=== PATIENT | male | born 1970 | race Caucasian/White ===

== ENCOUNTER → 2016-08-07 | Outpatient (CLI) | payer BC, MEDICARE ==
[2016-08-07 13:01] LABS: RED BLOOD COUNT 4.79 M/UL (4.20-5.50); WHITE BLOOD COUNT 5.8 K/UL (4.5-11.0)
== END ==
LOC: LAB 11:56
PROVIDERS: Internal Medicine Nephrology
DX: Z94.0 Kidney transplant status (principal); N18.9 Chronic kidney disease, unspecified; Z79.899 Other long term (current) drug therapy
CPT/HCPCS: 36415; 80069; 83735; 85027

== ENCOUNTER → 2020-08-07 | Outpatient (CLI) | payer BC, MEDICARE ==
[~2020-08-07] MED LIST: BACTROBAN OINT22 GM EXT
[2020-08-07 13:04] LABS: HEMOGLOBIN 12.8 gm/dl (14.0-17.5); RED BLOOD COUNT 4.55 M/UL (4.20-5.50); WHITE BLOOD COUNT 5.6 K/UL (4.5-11.0)
== END ==
LOC: LAB 12:28
PROVIDERS: Internal Medicine Nephrology
DX: N18.9 Chronic kidney disease, unspecified (principal); Z79.899 Other long term (current) drug therapy; Z94.0 Kidney transplant status
CPT/HCPCS: 36415; 80061; 80069; 83735; 85025

== ENCOUNTER → 2020-11-03 | Outpatient (CLI) | payer BC, MEDICARE ==
[2020-11-03 10:40] LABS: HEMOGLOBIN 13.7 gm/dl (14.0-17.5); RED BLOOD COUNT 4.73 M/UL (4.20-5.50); WHITE BLOOD COUNT 6.1 K/UL (4.5-11.0)
== END ==
LOC: LAB 09:55
PROVIDERS: Internal Medicine Nephrology
DX: Z48.22 Encounter for aftercare following kidney transplant (principal); Z51.81 Encounter for therapeutic drug level monitoring; N18.9 Chronic kidney disease, unspecified; Z79.899 Other long term (current) drug therapy
CPT/HCPCS: 36415; 80069; 83735; 85025; 87086

== ENCOUNTER 2021-01-18 16:36 | Emergency (ER) | payer BC, MEDICARE ==
[~2021-01-18] VITALS: Ht 182.9 cm; Wt 111.1 kg
[2021-01-18] MEDS ORDERED: DELSYM30 MG/5 ML PO (19:02)
[2021-01-18] MEDS ORDERED: ZOFRAN4 MG PO (19:02)
== END 2021-01-18 20:11 | disposition home or self-care (01) ==
LOC: ER1 16:36
DX: Z23 Encounter for immunization (principal); Z86.73 Personal history of transient ischemic attack (TIA), and cerebral infarction without residual deficits; Z94.0 Kidney transplant status; U07.1 COVID-19
CPT/HCPCS: 99283; M0243

== ENCOUNTER → 2021-06-22 | Outpatient (CLI) | payer BC, MEDICARE ==
[~2021-06-22] MED LIST changes: +DELSYM30 MG/5 ML PO; +ZOFRAN4 MG PO
[2021-06-22 12:57] LABS: HEMOGLOBIN 14.4 gm/dl (14.0-17.5); RED BLOOD COUNT 5.15 M/UL (4.20-5.50); WHITE BLOOD COUNT 6.5 K/UL (4.5-11.0)
== END ==
LOC: LAB 12:17
PROVIDERS: Internal Medicine
DX: Z48.22 Encounter for aftercare following kidney transplant (principal); Z79.899 Other long term (current) drug therapy
CPT/HCPCS: 36415; 80069; 83735; 85025; 87086

== ENCOUNTER → 2021-08-01 | Outpatient (CLI) | payer BC, MEDICARE ==
[2021-08-01 11:37] LABS: HEMOGLOBIN 12.8 gm/dl (14.0-17.5); RED BLOOD COUNT 4.74 M/UL (4.20-5.50); WHITE BLOOD COUNT 6.4 K/UL (4.5-11.0)
== END ==
LOC: LAB 10:20
PROVIDERS: Internal Medicine
DX: Z48.22 Encounter for aftercare following kidney transplant (principal); Z94.0 Kidney transplant status; Z79.899 Other long term (current) drug therapy
CPT/HCPCS: 36415; 80069; 83735; 85025; 87086

== ENCOUNTER → 2021-10-04 | Outpatient (CLI) | payer OTHER, BC, MEDICARE | LOC: RAD 11:04 | DX: M25.511 Pain in right shoulder (principal); M54.50 Low back pain, unspecified; M54.9 Dorsalgia, unspecified; G89.29 Other chronic pain; M19.011 Primary osteoarthritis, right shoulder; M51.36 Other intervertebral disc degeneration, lumbar region; M51.37 Other intervertebral disc degeneration, lumbosacral region; M25.78 Osteophyte, vertebrae; M47.816 Spondylosis without myelopathy or radiculopathy, lumbar region; M81.0 Age-related osteoporosis without current pathological fracture; M48.54XA Collapsed vertebra, not elsewhere classified, thoracic region, initial encounter for fracture; M43.9 Deforming dorsopathy, unspecified; M51.34 Other intervertebral disc degeneration, thoracic region | CPT/HCPCS: 72040; 72070; 72100; 73030 ==

== ENCOUNTER → 2021-11-06 | Outpatient (CLI) | payer BC, MEDICARE ==
[2021-11-06 12:34] LABS: HEMOGLOBIN 12.3 gm/dl (14.0-17.5); RED BLOOD COUNT 4.42 M/UL (4.20-5.50); WHITE BLOOD COUNT 4.8 K/UL (4.5-11.0)
== END ==
LOC: LAB 11:39
PROVIDERS: Internal Medicine; Internal Medicine Nephrology
DX: Z48.22 Encounter for aftercare following kidney transplant (principal); N25.81 Secondary hyperparathyroidism of renal origin; Z94.0 Kidney transplant status; Z79.899 Other long term (current) drug therapy
CPT/HCPCS: 36415; 80053; 82043; 82570; 83735; 83970; 84100; 84156; 85025; 87086

== ENCOUNTER → 2021-12-03 | Outpatient (CLI) | payer BC, MEDICARE ==
[2021-12-03 12:54] LABS: HEMOGLOBIN 8.3 gm/dl (14.0-17.5); RED BLOOD COUNT 2.79 M/UL (4.20-5.50); WHITE BLOOD COUNT 5.9 K/UL (4.5-11.0)
== END | disposition home or self-care (01) ==
LOC: OPSV 12:08
PROVIDERS: Family Medicine
DX: K51.90 Ulcerative colitis, unspecified, without complications (principal)
CPT/HCPCS: 80053; 85025; 86140

== ENCOUNTER → 2021-12-10 | Outpatient (CLI) | payer BC, MEDICARE | LOC: OPSV 10:41 | PROVIDERS: Family Medicine | DX: Z11.9 Encounter for screening for infectious and parasitic diseases, unspecified (principal) | CPT/HCPCS: 80053; 86140 ==

== ENCOUNTER → 2021-12-11 | Outpatient (CLI) | payer BC, MEDICARE ==
[2021-12-11 10:59] LABS: HEMOGLOBIN 9.2 gm/dl (14.0-17.5); RED BLOOD COUNT 3.12 M/UL (4.20-5.50); WHITE BLOOD COUNT 5.4 K/UL (4.5-11.0)
== END ==
LOC: OPSV 10:14
PROVIDERS: Family Medicine
DX: Z48.00 Encounter for change or removal of nonsurgical wound dressing (principal); Z11.9 Encounter for screening for infectious and parasitic diseases, unspecified
CPT/HCPCS: 36591; 85025

== ENCOUNTER → 2021-12-18 | Outpatient (CLI) | payer BC, MEDICARE ==
[2021-12-18 13:03] LABS: HEMOGLOBIN 7.6 gm/dl (14.0-17.5); RED BLOOD COUNT 2.55 M/UL (4.20-5.50); WHITE BLOOD COUNT 6.7 K/UL (4.5-11.0)
== END ==
LOC: OPSV 12-17 11:00
PROVIDERS: Family Medicine
DX: Z48.00 Encounter for change or removal of nonsurgical wound dressing (principal); Z11.9 Encounter for screening for infectious and parasitic diseases, unspecified
CPT/HCPCS: 80053; 85025; 86140

== ENCOUNTER → 2021-12-19 | Outpatient (CLI) | payer BC, MEDICARE ==
[2021-12-19 16:30] LABS: HEMOGLOBIN 7.8 gm/dl (14.0-17.5)
== END ==
LOC: LAB 15:57
PROVIDERS: Nurse Practitioner Family
DX: D64.9 Anemia, unspecified (principal)
CPT/HCPCS: 85014; 85018; 86850; 86900; 86901; 86920; P9016

== ENCOUNTER → 2021-12-20 | Outpatient (CLI) | payer BC, MEDICARE | LOC: OPSV 09:00 | DX: D64.9 Anemia, unspecified (principal) | CPT/HCPCS: 36430; J7050; P9016 ==

== ENCOUNTER → 2021-12-25 | Outpatient (CLI) | payer BC, MEDICARE ==
[2021-12-25 12:36] LABS: HEMOGLOBIN 9.3 gm/dl (14.0-17.5); RED BLOOD COUNT 3.14 M/UL (4.20-5.50); WHITE BLOOD COUNT 6.6 K/UL (4.5-11.0)
[2021-12-26 07:12] LABS: VITAMIN D, 25-HYDROXY 29.3 ng/mL (30.0-100.0)
[2021-12-26 12:14] LABS: CREATININE, URINE 190.9 mg/dL (Not Estab.)
[2021-12-26 14:11] LABS: TACROLIMUS BY IMMUNOASSAY 8.3 ng/mL (2.0-20.0)
== END ==
LOC: OPSV 11:37
PROVIDERS: Internal Medicine Nephrology
DX: Z11.9 Encounter for screening for infectious and parasitic diseases, unspecified (principal); G00.9 Bacterial meningitis, unspecified; I10 Essential (primary) hypertension; K92.2 Gastrointestinal hemorrhage, unspecified; N25.81 Secondary hyperparathyroidism of renal origin; Z94.0 Kidney transplant status
CPT/HCPCS: 36591; 80053; 80197; 82043; 82570; 83970; 84100; 84156; 85025; 86140

== ENCOUNTER → 2022-01-03 | Outpatient (CLI) | payer BC, MEDICARE ==
[2022-01-04 10:15] LABS: CREATININE, URINE 85.2 mg/dL (Not Estab.)
== END ==
LOC: LAB 14:16
PROVIDERS: Internal Medicine Nephrology
DX: N17.9 Acute kidney failure, unspecified (principal)
CPT/HCPCS: 36415; 80053; 82043; 82570; 84156

== ENCOUNTER → 2022-02-08 | Outpatient (CLI) | payer BC, MEDICARE ==
[2022-02-08 10:45] LABS: HEMOGLOBIN 8.2 gm/dl (14.0-17.5); RED BLOOD COUNT 2.9 M/UL (4.20-5.50); WHITE BLOOD COUNT 5.7 K/UL (4.5-11.0)
[2022-02-09 09:14] LABS: CREATININE, URINE 171.9 mg/dL (Not Estab.)
[2022-02-12 09:14] LABS: FERRITIN 332 ng/mL (30-400); IRON BIND.CAP.(TIBC) 174 ug/dL (250-450); IRON SATURATION 20 % (15-55); IRON, SERUM 34 ug/dL (38-169); UIBC 140 ug/dL (111-343)
== END ==
LOC: LAB 10:16
PROVIDERS: Internal Medicine Nephrology
DX: N17.9 Acute kidney failure, unspecified (principal); K92.2 Gastrointestinal hemorrhage, unspecified; N25.81 Secondary hyperparathyroidism of renal origin; Z94.0 Kidney transplant status
CPT/HCPCS: 36415; 80053; 80197; 82043; 82570; 82728; 83540; 83550; 84156; 85027